=== PATIENT | female | born 1945 | race Caucasian/White ===

== ENCOUNTER 2016-03-26 12:46 | Day surgery (SDC) | payer MEDICARE ==
[2016-03-26] MEDS ORDERED: NACL 0.9% 1000 ML 1,000 ML IV SCH (13:00)
--- NOTE | 2016-03-26 14:00 | Anesthesia Day of Surgery ---
Anesthesia Day of Surgery - Day of Surgery Patient Examined: Yes Patient H&P Reviewed: Yes Patient is NPO: Yes
--- NOTE | 2016-03-26 14:02 | Anesthesia Consultation ---
Anesthesia Consult and Med Hx Date of service: 03/26/16 - Airway Anesthetic Teeth Evaluation: Good ROM Head & Neck: Adequate Mental/Hyoid Distance: Adequate Mallampati Class: Class II Intubation Access Assessment: Probably Good - Pulmonary Exam CTA: Yes - Cardiac Exam Cardiac Exam: RRR - Pre-Operative Health Status ASA Pre-Surgery Classification: ASA2 Proposed Anesthetic Plan: MAC - Pulmonary Hx Smoking: No Hx Pneumonia: Yes (X 10 years ago) - Cardiovascular System Hx Hypertension: Yes - Gastrointestinal Hx Ulcer: Yes (s/p partial gastrectomy) Hx Gastroesophageal Reflux Disease: Yes - Endocrine Hx Non-Insulin Dependent Diabetes: Yes - Additional Comments Anesthesia Medical History Comments: NAC
[2016-03-26] MEDS ORDERED: DIPRIVAN 10 MG/ML IV ONE (14:21)
--- NOTE | 2016-03-26 15:14 | Operative Report ---
Operative Report Operative Report: Date of procedure: 03/26/2016 Procedure: Esophagogastroduodenoscopy with multiple mucosal biopsies Attending physician: Dakotah Daniels MD Dietitian Helper: Dakotah Daniels MD Indication: Patient is a 71-year-old female who presents with a history of dyspepsia with bloating and gas pain. She has a past history of peptic ulcer disease. Following treatment for gastric ulcer, patient developed a mass at the ulcer site and although multiple pathology reports were negative the mass was noted to increase in size and was eventually excised by wedge resection. The pathology from the wedge resection did not demonstrate any cancer. Given the recurrence of symptoms nonetheless an upper endoscopy is done to assess as of directing treatment based on the findings. Consent: Informed consent was obtained after advising the patient and family regarding nature of this procedure, its indications, potential benefits as well as possible complications including but not limited to bleeding perforation and adverse reaction to medication, infection as well as other cardiopulmonary complications. An informed written and verbal consent was then obtained after due opportunity was provided for questions and answers. Monitoring: Patient was monitored continuously with pulse oximetry and electrocardiographic recordings as well as blood pressure recordings. Vital signs remained stable throughout this procedure with no untoward events. Preoperative assessment: Patient was assessed immediately prior to this procedure for capacity to tolerate monitored anesthesia care and moderate sedation as well as general anesthesia. Patient's ASA classification is 2, Mallampati class is 2, Hyomental distance is 3. Instrument: Entrenarmen video endoscope Medications: Propofol, given intravenous in divided doses for details please refer to anesthesia records Description of procedure: Patient was placed in the left lateral decubitus position after achieving sedation, the endoscope was introduced into the esophagus under direct vision. It was then advanced beyond the esophagus into the stomach and then beyond the stomach into the duodenum and to the second portion of the duodenum. It was subsequently withdrawn with careful inspection of all mucosal surfaces with the following findings. Findings: The Z line was irregular at 38 cm. There was a small gastric ulcer with a clip seen at the further prior ulcer sites i.e. the resection site. There was no mass lesion seen. Biopsies were obtained from this area for histopathology. The duodenum was normal to second portion. Impression: Irregular Z line. Hiatal hernia. Gastric ulcer at the resection site. Plan: Follow pathology report and direct additional treatment based on pathology. Continue symptomatic management patient.
--- NOTE | 2016-03-26 15:15 | Discharge Summary ---
Short Stay Discharge Plan Activity: advance as tolerated Weight Bearing Status: Weight Bear as Tolerated Diet: regular Follow up with: JOSE HEAD MD [Primary Care Provider] - 7 Days
[2016-03-26 15:39] VITALS: BP 110/52
--- NOTE | 2016-03-26 16:02 | Post Anesthesia Evaluation ---
- Post Anesthesia Evaluation Patient Participated: Yes Airway Patent: Yes Stable Respiratory Function: Yes Temp > 96.8F: Yes Pain Manageable: Yes Adequeate Hydration: Yes Anesthesia Complications: No Block Receding Appropriately: Not Applicable
== END 2016-03-26 12:47 | disposition home or self-care (01) ==
LOC: GIO 12:46
PROVIDERS: ATTEND Internal Medicine Gastroenterology
DX: K25.9 Gastric ulcer, unspecified as acute or chronic, without hemorrhage or perforation (principal); K22.8 Other specified diseases of esophagus; K44.9 Diaphragmatic hernia without obstruction or gangrene; K21.9 Gastro-esophageal reflux disease without esophagitis; I10 Essential (primary) hypertension; M19.90 Unspecified osteoarthritis, unspecified site; E11.9 Type 2 diabetes mellitus without complications; Z87.11 Personal history of peptic ulcer disease; Z87.01 Personal history of pneumonia (recurrent); Z90.3 Acquired absence of stomach [part of]
CPT/HCPCS: 43239; 82962; 88305; 88342; J2704; J7030